=== PATIENT | female | born 1950 | race Caucasian/White ===

== ENCOUNTER → 2020-06-07 | Outpatient (CLI) | payer MEDICARE, OTHER | LOC: HEART CORB 10:15 | DX: R07.89 Other chest pain (principal); Z86.79 Personal history of other diseases of the circulatory system; I25.10 Atherosclerotic heart disease of native coronary artery without angina pectoris; I25.2 Old myocardial infarction; I10 Essential (primary) hypertension; E78.5 Hyperlipidemia, unspecified; M32.9 Systemic lupus erythematosus, unspecified; E03.9 Hypothyroidism, unspecified; J44.9 Chronic obstructive pulmonary disease, unspecified; F17.210 Nicotine dependence, cigarettes, uncomplicated; Z95.5 Presence of coronary angioplasty implant and graft | CPT/HCPCS: 78452; A9502; J2785 ==

== ENCOUNTER 2021-02-23 13:25 | Observation (INO) | payer MEDICARE, OTHER ==
[~2021-02-23] VITALS: Ht 160 cm; Wt 63.5 kg
[2021-02-23 13:54] LABS: HEMOGLOBIN 11.8 gm/dl (12.3-15.3); RED BLOOD COUNT 4.42 M/UL (4.00-5.10); WHITE BLOOD COUNT 6.8 K/UL (4.5-11.0)
[2021-02-23] MEDS ORDERED: LISINOPRIL10 MG PO (16:14)
[2021-02-23] MEDS ORDERED: KLONOPIN TAB 00.5 MG PO (16:14)
[2021-02-23] MEDS ORDERED: POTASSIUM CHLO10 MEQ PO (16:15)
[2021-02-23] MEDS ORDERED: ATORVASTATIN CA20 MG PO (16:15)
[2021-02-23] MEDS ORDERED: EUTHYROX200 MCG PO (16:16)
[2021-02-23] MEDS ORDERED: MINOCYCLINE HC100 MG PO (16:16)
[2021-02-23] MEDS ORDERED: CARVEDILOL12.5 MG PO (16:16)
[2021-02-23] MEDS ORDERED: OXYBUTYNIN CHLO15 MG PO (16:17)
[2021-02-23] MEDS ORDERED: FUROSEMIDE20 MG PO (16:17)
[2021-02-23] MEDS ORDERED: NITROGLYCERIN0.4 MG SL (16:17)
[2021-02-23] MEDS ORDERED: HYDROXYCHLOROQ200 MG PO (16:18)
[2021-02-23] MEDS ORDERED: ODOR FREE GARL1 EAC1 PO (16:18)
[2021-02-23] MEDS ORDERED: TIZANIDINE HCL4 MG PO (16:18)
[2021-02-23] MEDS ORDERED: CRANBERRY500 M3 PO (16:19)
[2021-02-23] MEDS ORDERED: VITAMIN D350 MC3 PO (16:19)
[2021-02-23] MEDS ORDERED: SUPER TWIN EP1250 MG PO (16:19)
[2021-02-23] MEDS ORDERED: STOOL SOFTENER1 EAC2 PO (16:20)
[2021-02-24 03:14] LABS: HEMOGLOBIN 11.1 gm/dl (12.3-15.3); RED BLOOD COUNT 4.24 M/UL (4.00-5.10); WHITE BLOOD COUNT 6.5 K/UL (4.5-11.0)
[2021-02-25 03:32] LABS: RED BLOOD COUNT 4.57 M/UL (4.00-5.10)
[2021-02-25 03:36] LABS: WHITE BLOOD COUNT 4.7 K/UL (4.5-11.0)
[2021-02-25 04:03] LABS: BUN/CREATININE RATIO 49 (0-10)
[2021-02-25] MEDS ORDERED: POTASSIUM CHLO10 MEQ PO (08:47)
[2021-02-25] MEDS ORDERED: AUGMENTIN 875-1 EACH PO (08:47)
[2021-02-25] MEDS ORDERED: FUROSEMIDE20 MG PO (08:47)
[2021-02-25] MEDS ORDERED: DECADRON6 MG PO (08:48)
[2021-02-25] MEDS ORDERED: PROAIR HFA8.5 GM INH (08:48)
== END 2021-02-25 11:05 | disposition home or self-care (01) ==
LOC: ER1 13:25 → PROG CARE 16:52 → CDU 02-24 09:32 → PROG CARE 02-24 09:33
PROVIDERS: Emergency Medicine; Physician Assistant Medical; ADMIT Internal Medicine
DX: U07.1 COVID-19 (principal); J12.82 Pneumonia due to coronavirus disease 2019; A41.9 Sepsis, unspecified organism; R65.20 Severe sepsis without septic shock; N17.9 Acute kidney failure, unspecified; T50.905A Adverse effect of unspecified drugs, medicaments and biological substances, initial encounter; N14.2 Nephropathy induced by unspecified drug, medicament or biological substance; J44.0 Chronic obstructive pulmonary disease with (acute) lower respiratory infection; M32.9 Systemic lupus erythematosus, unspecified; I25.10 Atherosclerotic heart disease of native coronary artery without angina pectoris; D69.6 Thrombocytopenia, unspecified; I10 Essential (primary) hypertension; E03.9 Hypothyroidism, unspecified; F41.9 Anxiety disorder, unspecified; N30.90 Cystitis, unspecified without hematuria; B96.20 Unspecified Escherichia coli [E. coli] as the cause of diseases classified elsewhere; Z95.5 Presence of coronary angioplasty implant and graft; Z88.2 Allergy status to sulfonamides; Z88.8 Allergy status to other drugs, medicaments and biological substances; Z87.891 Personal history of nicotine dependence; Z79.899 Other long term (current) drug therapy
CPT/HCPCS: 0240U; 36415; 36600; 71045; 80048; 80053; 81001; 82550; 82553; 82803; 82962; 83605; 83690; 83735; 83880; 84100; 84439; 84443; 84484; 85025; 85027; 85610; 85730; 87040; 87077; 87086; 87186; 93005; 94640; 94664; 94760; 96372; 96374; 96375; 96376; 99285; G0378; J0248; J0696; J1100; J1650; J7030

== ENCOUNTER → 2021-07-12 | Outpatient (CLI) | payer MEDICARE, OTHER ==
[~2021-07-12] MED LIST: ATORVASTATIN CA20 MG PO; AUGMENTIN 875-1 EACH PO; CARVEDILOL12.5 MG PO; CRANBERRY500 M3 PO; DECADRON6 MG PO; EUTHYROX200 MCG PO; FUROSEMIDE20 MG PO; HYDROXYCHLOROQ200 MG PO; KLONOPIN TAB 00.5 MG PO; LISINOPRIL10 MG PO; MINOCYCLINE HC100 MG PO; NITROGLYCERIN0.4 MG SL; ODOR FREE GARL1 EAC1 PO; OXYBUTYNIN CHLO15 MG PO; POTASSIUM CHLO10 MEQ PO; PROAIR HFA8.5 GM INH; STOOL SOFTENER1 EAC2 PO; SUPER TWIN EP1250 MG PO; TIZANIDINE HCL4 MG PO; VITAMIN D350 MC3 PO
== END ==
LOC: KOH-I 12:49
DX: M50.123 Cervical disc disorder at C6-C7 level with radiculopathy (principal)
CPT/HCPCS: 72141

== ENCOUNTER → 2021-07-14 | Outpatient (CLI) | payer MEDICARE, OTHER | LOC: HEART 5 14:14 | DX: J44.9 Chronic obstructive pulmonary disease, unspecified (principal) | CPT/HCPCS: 94060; 94729 ==

== ENCOUNTER → 2021-08-25 | Outpatient (CLI) | payer MEDICARE, OTHER | LOC: KOH-I 13:44 | DX: M54.50 Low back pain, unspecified (principal); M47.816 Spondylosis without myelopathy or radiculopathy, lumbar region | CPT/HCPCS: 72100 ==